=== PATIENT | female | born 1955 | race African-American/Black ===

== ENCOUNTER 2017-04-06 11:28 | Outpatient (CLI) | payer MEDICARE ==
[2017-04-06 12:31] LABS: #Basophils 0.1 thou/uL (0.0-0.2); #Eosinphils 0.1 thou/uL (0.0-0.7); #Lymphocytes 2.3 thou/uL (1.20-3.40); #Monocytes 0.3 thou/uL (0.11-0.59); #Neutrophils 2.3 thou/uL (1.40-6.50); %Basophils 1.5 % (0.0-1.0); %Eosinophils 2.7 % (0.0-10.0); %Lymphocytes 44.6 % (21.0-51.0); %Monocytes 5.7 % (0.0-10.0); %Neutrophils 45.6 % (42.0-75.0); Hemoglobin 15.6 g/dL (12.0-16.0); Mean Corpuscular HGB CONC 33.4 g/dL (32.0-36.0); Mean Corpuscular Hemoglobin 31.2 pg (27.0-31.0); Mean Corpuscular Volume 93.3 fl (81.0-99.0); Mean Platelet Volume 9.7 fL (7.4-10.4); Platelet Count 195 thou/uL (130-400); Red Blood Cell (RBC) Count 5.01 mill/uL (4.20-5.40); White Blood Cell (WBC) Count 5.1 thou/uL (4.8-10.8)
[2017-04-06 12:33] LABS: ALT (SGPT) 20 U/L (8-55); AST (SGOT) 18 U/L (5-34); Albumin 4.5 g/dL (3.4-4.8); Alkaline Phosphatase 98 U/L (40-150); Anion Gap 14 mmol/L (10-20); BUN (Urea Nitrogen) 18 mg/dL (9.8-20.1); Bilirubin, Total 0.4 mg/dL (0.2-1.2); Calc. Creatinine Clearance 0 mL/min (70-130); Calcium 9.9 mg/dL (7.8-10.44); Carbon Dioxide 24 mmol/L (23-31); Cardiac Risk 3.8 (Less than 4.5); Chloride 103 mmol/L (98-107); Cholesterol 199 mg/dl (< 200 Desired); Estimated GFR-MDRD 59; Globulin 4.6 g/dL (2.4-3.5); Glucose 100 mg/dL (80-115); HDL Cholesterol 52 mg/dL (>60 Neg Risk); LDL Cholesterol, Calculated 106 mg/dL; Protein, Total 9.1 g/dL (6.0-8.3); Sodium 137 mmol/L (136-145); Triglycerides 204 mg/dL (Less than 150)
== END 2017-04-06 11:29 | disposition home or self-care (01) ==
LOC: HPCALD 11:28
PROVIDERS: ATTEND Family Medicine
DX: E78.5 Hyperlipidemia, unspecified (principal); I10 Essential (primary) hypertension; L65.9 Nonscarring hair loss, unspecified
CPT/HCPCS: 36415; 80053; 80061; 84443; 85025

== ENCOUNTER 2018-05-14 20:23 | Emergency (ER) | payer MEDICARE, MEDICAID ==
[2018-05-14] MEDS ORDERED: Azithromycin 250 MG TAB ONE (20:46)
--- NOTE | 2018-05-14 23:16 | RAD ---
CHEST TWO VIEWS: Date: 05-14-18 Comparison: 08-20-14 FINDINGS: The heart is normal in size. There is no vascular congestion, edema, or pleural effusion. While there is no major lobar infiltrate, there is some minor streaking in the right lung base, seen best on the PA film. This may or may not be an early infiltrate. The lungs are otherwise clear. The trachea is m idline. The mediastinum appears normal. IMPRESSION: Equivocal right basilar streaking. POS: HOME
== END 2018-05-14 20:48 | disposition home or self-care (01) ==
LOC: BURERS 20:23
DX: J98.8 Other specified respiratory disorders (principal); B20 Human immunodeficiency virus [HIV] disease; E78.5 Hyperlipidemia, unspecified; F17.210 Nicotine dependence, cigarettes, uncomplicated; F32.9 Major depressive disorder, single episode, unspecified; Z79.899 Other long term (current) drug therapy; Z79.1 Long term (current) use of non-steroidal anti-inflammatories (NSAID)
CPT/HCPCS: 71046

== ENCOUNTER 2018-08-29 15:29 | Outpatient (CLI) | payer MEDICARE, MEDICAID ==
--- NOTE | 2018-08-29 19:39 | RAD ---
RIGHT ANKLE THREE VIEWS: 08/29/18 Some soft tissue swelling is seen around the joint but no fracture was seen. The articular surfaces a re smooth. IMPRESSION: No acute bony changes. POS: HOME
== END 2018-08-29 15:30 | disposition home or self-care (01) ==
LOC: BURRAD 15:29
PROVIDERS: ATTEND Family Medicine
DX: M25.571 Pain in right ankle and joints of right foot (principal)
CPT/HCPCS: 36415; 84550

== ENCOUNTER 2019-11-29 11:24 | Outpatient (CLI) | payer MEDICARE ==
--- NOTE | 2019-11-29 18:32 | RAD ---
LEFT HUMERUS TWO VIEWS: 11/29/19 No fracture was seen. The humerus appears intact. A small amount of sclerosis in the mid shaft could be an old bone infarct, but its appearance is not disturbing. IMPRESSION: No acute findings. POS: HOME
--- NOTE | 2019-11-29 18:33 | RAD ---
LEFT WRIST THREE VIEWS: 11/29/19 No fracture, recent or remote, was seen. The carpal relationships seem normal. The metacarpals appear normal. IMPRESSION: No acute finding. POS: HOME
--- NOTE | 2019-11-29 18:51 | RAD ---
LEFT SHOULDER THREE VIEWS: 11/29/19 No fracture, dislocation, or AC joint widening was seen. All bones appear intact. There might be some minimal irregularity along the inferior rim of the glenoid but this is uncertain. The scapula appear s intact. IMPRESSION: No acute bony findings of concern. POS: HOME
--- NOTE | 2019-11-29 18:55 | RAD ---
LEFT ELBOW FOUR VIEWS: 11/29/19 No fracture, dislocation, or joint effusion was seen. There are no arthritic changes of concern. Ther e is some slight ossification at the insertion of the triceps tendon on the olecranon. IMPRESSION: No acute findings. POS: HOME
--- NOTE | 2019-11-29 18:57 | RAD ---
LEFT FOREARM TWO VIEWS: 11/29/19 The radius and ulna appear intact. There were no bony abnormalities of concern that were seen. Some v ayo faint calcifications in the radial and ulnar shafts could relate to prior small bone infarcts, bu t the findings are not at all impressive. IMPRESSION: No acute finding. POS: HOME
== END 2019-11-29 11:25 | disposition home or self-care (01) ==
LOC: BURRAD 11:24
PROVIDERS: ATTEND Family Medicine
DX: M79.602 Pain in left arm (principal)

== ENCOUNTER 2020-06-24 11:48 | Emergency (ER) | payer MEDICARE, MEDICAID ==
[2020-06-24] MEDS ORDERED: Lidocaine 1% PF 5 ML VIAL ONE (12:42)
[2020-06-24] MEDS ORDERED: Sulfameth/Trimethoprim DS 800-160mg TAB ONE (13:38)
[2020-06-24] MEDS ORDERED: Ibuprofen 200 MG TAB ONE (13:38)
== END 2020-06-24 13:46 | disposition home or self-care (01) ==
LOC: BURERS 11:48
DX: N61.1 Abscess of the breast and nipple (principal); E78.5 Hyperlipidemia, unspecified; F32.9 Major depressive disorder, single episode, unspecified; F17.210 Nicotine dependence, cigarettes, uncomplicated; B20 Human immunodeficiency virus [HIV] disease; Z79.899 Other long term (current) drug therapy; Z71.6 Tobacco abuse counseling
CPT/HCPCS: 10060; 99406

== ENCOUNTER 2021-08-06 14:37 | Outpatient (CLI) | payer MEDICARE, MEDICAID | END 2021-08-06 14:38 | disposition home or self-care (01) | LOC: BURRAD 14:37 | PROVIDERS: ATTEND Family Medicine | DX: M79.672 Pain in left foot (principal) ==